=== PATIENT | female | born 1960 | race Caucasian/White ===

== ENCOUNTER 2020-06-08 18:52 | Emergency (ER) | payer BC ==
[~2020-06-08] VITALS: Ht 170.2 cm; Wt 72.6 kg
[2020-06-08 18:56] VITALS: Ht 170.2 cm; Wt 72.6 kg
[2020-06-08 19:48] LABS: BASOPHIL % 0.6 % (0-2); RED CELL DISTRIBUTION WIDTH 13.4 % (11.5-14.5)
[2020-06-08 19:52] LABS: PLATELET COUNT 120 x10^3mcL (130-400)
[2020-06-08 19:59] LABS: CALCIUM 9.1 mg/dL (8.5-10.1); CHLORIDE SERUM 105 mmol/L (98-107); GFR1 > 60 mL/min; GLUCOSE SERUM 119 mg/dL (74-106); POTASSIUM SERUM 3.6 mmol/L (3.5-5.1); SODIUM SERUM 140 mmol/L (136-145)
[2020-06-08 20:05] LABS: ALBUMIN 4.3 g/dL (3.4-5.0); ALKALINE PHOSPHATASE 60 U/L (46-116); ALT/SGPT 28 U/L (14-59); AST/SGOT 24 U/L (15-37); BILIRUBIN TOTAL 0.33 mg/dL (0.20-1.00); TOTAL PROTEIN, SERUM 7.6 g/dL (6.4-8.2)
[2020-06-08 20:06] LABS: FREE T4 1.24 ng/dL (0.76-1.46)
[2020-06-09 05:46] VITALS: BP 132/72
== END 2020-06-09 05:46 ==
LOC: ED 18:52
PROVIDERS: Emergency Medicine
DX: F41.9 Anxiety disorder, unspecified (principal); R45.851 Suicidal ideations; Z20.828 Contact with and (suspected) exposure to other viral communicable diseases
CPT/HCPCS: 84439; G0480; J2060; Q0092; U0003-CS